=== PATIENT | female | born 1975 | race Caucasian/White ===

== ENCOUNTER 2017-03-23 20:06 | Emergency (ER) | payer BC, OTHER ==
[2017-03-23 20:10] VITALS: TEMP 98.1
--- NOTE | 2017-03-23 20:37 | EDPHY ---
H & P Stated Complaint: abd pain, saw MD Carson butler ruputured ovarian cyst Time Seen by Provider: 03/23/17 20:36 HPI/ROS: HPI: This is a 41-year-old female who presents with Chief Complaint: abd pain, saw MD Carson butler ruputured ovarian cyst Location: Right lower quadrant Quality: Pain Duration: 0200 this morning Signs and Symptoms: no fever, + nausea, no vomiting, no hematemesis, no blood in stool, no abdominal bloating, no diarrhea, no back pain, no urinary symptoms , no hematuria, no indigestion, no chest pain, no shortness of breath Timing: Sudden Severity: Moderate Context: Patient reports that around 2:00 a.m. she was woken up out of her sleep by right lower quadrant sharp moderate, nonradiating pain that is just kind of there all day accompanied by nausea. Patient reports that she has a history ovarian cysts in her primary is concerned that it ruptured. Last menstrual period was approximately 1-2 weeks ago. Denies any dyspareunia/ vaginal bleeding/vaginal discharge. No prior abdominal surgeries or history of kidney stones. Her appetite was decreased today but drinking fluids without difficulty. Denies any fever/nausea/vomiting/diarrhea. She had a bowel movement yesterday without difficulty. Modifying Factors: Called her PCP and advised her to go to the ER Comment: ROS: see HPI Constitutional: No fever, no chills, no weight loss Eyes: No blurred vision Respiratory: No shortness of breath, no cough Cardiovascular: No chest pain, no palpitations Gastrointestinal: No nausea, no vomiting, no diarrhea, no hematemesis, no blood in stool Genitourinary: No dysuria, no blood in urine Extremities: No myalgias, no edema Neurologic: No weakness, no numbness Skin: No rashes, no petechiae Hematologic: No bruising, no bleeding MEDICAL/SURGICAL/SOCIAL HISTORY: Medical history: Ovarian cyst PSHx: sinus surgery, jaw surgery Social history: CONSTITUTIONAL: Pleasant adult white female, nontoxic in appearance, awake and alert, no obvious distress HEENT: Atraumatic and normocephalic, PERRL, EOMI. Tympanic membranes clear. Oropharynx clear, no exudate and moist pink mucosa. Airway patent. No lymphadenopathy. No meningismus. Cardiovascular: Normal S1/S2, regular rate, regular rhythm, without murmur rub or gallop. PULMONARY/CHEST: Symmetrical and nontender. Clear to auscultation bilaterally. Good air movement. No accessory muscle usage. ABDOMEN: Soft, nondistended, suprapubic and right lower quadrant tenderness, no right lower quadrant pain when palpating left lower quadrant, negative psoas sign, negative obturator sign, negative Rovsing sign, no rebound, no guarding, no peritoneal signs, no masses or organomegaly. No CVAT. Bowel sounds heard x4 quadrants. EXTREMITIES: 2/2 pulses, strength 5/5, no deformities, no clubbing, no cyanosis or edema. NEUROLOGICAL: no focal neuro deficits. GCS 15. SKIN: Warm and dry, no erythema. no rash. Good capillary refill. Source: Patient, Family () Exam Limitations: No limitations - Personal History LMP (Females 10-55): 15-21 Days Ago Current Tetanus/Diphtheria Vaccine: Unsure - Medical/Surgical History Hx Asthma: No Hx Chronic Respiratory Disease: No Hx Diabetes: No Hx Cardiac Disease: No Hx Renal Disease: No Hx Cirrhosis: No Hx Alcoholism: No Hx HIV/AIDS: No Hx Splenectomy or Spleen Trauma: No Other PMH: PMHx: denies. PSHx: sinus surgery, jaw surgery - Social History Smoking Status: Never smoked Constitutional: Initial Vital Signs Temperature (C) 36.7 C 03/23/17 20:08 Heart Rate 63 03/23/17 20:08 Respiratory Rate 14 03/23/17 20:08 Blood Pressure 126/71 H 03/23/17 20:08 O2 Sat (%) 98 03/23/17 20:08 O2 Delivery Mode Room Air Allergies/Adverse Reactions: iodine Allergy (Verified 04/25/16 04:52) Sulfa (Sulfonamide Antibiotics) Allergy (Verified 04/25/16 04:52) Home Medications: Medication Instructions Recorded Cefuroxime Axetil [Ceftin (*)] 250 mg PO BID #13 tab 03/23/17 Naproxen Sodium [Naproxen Sodium 500 mg PO DAILY PRN #12 tablet.sa 03/23/17 ER] Promethazine HCl [Phenergan 12.5mg 12.5 mg PO Q6 PRN #12 tablet 03/23/17 tab] Medical Decision Making - Diagnostics Imaging Results: Imaging Impressions Pelvic/Renal Ultrasound 03/23/17 20:40 Impression: 1. Complex cystic solid mass in the right adnexa, similar though slightly enlarged since previous exam in 2011. Similarity to prior exam and the presence of some arterial and venous flow within this structure arteries against torsion. Recommend MRI with and without contrast of the pelvis to further evaluate. 2. Solid-appearing vascular structure appears new but may represent hemorrhage within a corpus luteum cyst. This can be further evaluated on the MRI recommended above. Dr. Briceno discussed these findings by telephone with Traci Olivas on 2016 at 22:23. Abdomen Ultrasound 03/23/17 20:45 Impression: 1. Complex cystic solid mass in the right adnexa, similar though slightly enlarged since previous exam in 2011. Similarity to prior exam and the presence of some arterial and venous flow within this structure arteries against torsion. Recommend MRI with and without contrast of the pelvis to further evaluate. 2. Solid-appearing vascular structure appears new but may represent hemorrhage within a corpus luteum cyst. This can be further evaluated on the MRI recommended above. Dr. Briceno discussed these findings by telephone with Traci Olivas on 2016 at 22:23. ED Course/Re-evaluation: Labs, urinalysis, pelvic ultrasound ordered Labs reviewed and grossly unremarkable. Urinalysis shows infection sent for urine culture Keflex given; sulfa allergy Called by radiologist who advised that right cystic mass is slightly larger than the last ultrasound but does have flew venous and arterial. There is a left hemorrhagic cyst. Appendix not able to be visualized. MRI for further evaluation recommended outpatient Patient has an iodine allergy. Discussed nonvisualization of the appendix obtaining CT scan. Patient is very reluctant as believes this is all related to her ovaries. She follows with Dr. Mcbride a [facility] in wishes to follow up with her OBGYN in the next 1-2 days. She politely declines any opiate medications and requested prescription for naproxen and promethazine. Repeat abdominal exam is soft with only mild tenderness right lower quadrant. Patient passed p.o. trial. No signs of pyelonephritis/sepsis/acute kidney injury/acute abdomen. Differential Diagnosis: Abdominal pain in a female including but not limited to ovarian cyst, pelvic inflammatory disease, ovarian torsion, urinary tract infection, and appendicitis. - Data Points Laboratory Results: Laboratory Results 03/23/17 21:05 03/23/17 21:05 03/23/17 03/23/17 03/23/17 21:05 21:05 21:05 WBC RBC Hgb Hct MCV MCH MCHC RDW Plt Count MPV Neut % (Auto) Lymph % (Auto) [place] % (Auto) Eos % (Auto) Baso % (Auto) Nucleat RBC Rel Count Absolute Neuts (auto) Absolute Lymphs (auto) Absolute Monos (auto) Absolute Eos (auto) Absolute Basos (auto) Absolute Nucleated RBC Immature Gran % Immature Gran # PT 14.1 SEC SEC (12.0-15.0) INR 1.10 (0.83-1.16) APTT 26.1 SEC SEC (23.0-38.0) Sodium 134 mEq/L mEq/L (134-144) Potassium 3.8 mEq/L mEq/L (3.5-5.2) Chloride 101 mEq/L mEq/L (97-110) Carbon Dioxide 25 mEq/l mEq/l (22-31) Anion Gap 8 mEq/L mEq/L (8-16) BUN 12 mg/dL mg/dL (7-23) Creatinine 0.9 mg/dL mg/dL (0.6-1.0) Estimated GFR > 60 Glucose 109 mg/dL H mg/dL (70-100) Calcium 8.9 mg/dL mg/dL (8.5-10.4) Total Bilirubin 0.7 mg/dL mg/dL (0.1-1.4) Conjugated Bilirubin 0.0 mg/dL mg/dL (0.0-0.5) Unconjugated Bilirubin 0.7 mg/dL mg/dL (0.0-1.1) AST 17 IU/L IU/L (14-46) ALT 27 IU/L IU/L (9-52) Alkaline Phosphatase 57 IU/L IU/L (38-126) Total Protein 6.0 g/dL L g/dL (6.3-8.2) Albumin 3.9 g/dL g/dL (3.5-5.0) Urine Color YELLOW Urine Appearance HAZY Urine pH 5.0 (5.0-7.5) Ur Specific [place] 1.014 (1.002-1.030) Urine Protein NEGATIVE (NEGATIVE) Urine Ketones 1+ H (NEGATIVE) Urine Blood NEGATIVE (NEGATIVE) Urine Nitrate NEGATIVE (NEGATIVE) Urine Bilirubin NEGATIVE (NEGATIVE) Urine Urobilinogen NEGATIVE EU EU (0.2-1.0) Ur Leukocyte Esterase 2+ H (NEGATIVE) Urine RBC 5-10 /hpf H /hpf (0-3) Urine WBC 5-10 /hpf H /hpf (0-3) Ur Epithelial Cells TRACE /lpf /lpf (NONE-1+) Urine Bacteria 3+ /hpf H /hpf (NONE SEEN) Urine Mucus TRACE /lpf /lpf (NONE-1+) Urine Glucose NEGATIVE (NEGATIVE) 03/23/17 21:05 WBC 11.56 10^3/uL H 10^3/uL (3.80-9.50) RBC 4.42 10^6/uL 10^6/uL (4.18-5.33) Hgb 14.0 g/dL g/dL (12.6-16.3) Hct 39.9 % % (38.0-47.0) MCV 90.3 fL fL (81.5-99.8) MCH 31.7 pg pg (27.9-34.1) MCHC 35.1 g/dL g/dL (32.4-36.7) RDW 12.9 % % (11.5-15.2) Plt Count 226 10^3/uL 10^3/uL (150-400) MPV 9.5 fL fL (8.7-11.7) Neut % (Auto) 77.5 % H % (39.3-74.2) Lymph % (Auto) 14.6 % L % (15.0-45.0) [place] % (Auto) 6.6 % % (4.5-13.0) Eos % (Auto) 0.7 % % (0.6-7.6) Baso % (Auto) 0.3 % % (0.3-1.7) Nucleat RBC Rel Count 0.0 % % (0.0-0.2) Absolute Neuts (auto) 8.95 10^3/uL H 10^3/uL (1.70-6.50) Absolute Lymphs (auto) 1.69 10^3/uL 10^3/uL (1.00-3.00) Absolute Monos (auto) 0.76 10^3/uL 10^3/uL (0.30-0.80) Absolute Eos (auto) 0.08 10^3/uL 10^3/uL (0.03-0.40) Absolute Basos (auto) 0.04 10^3/uL 10^3/uL (0.02-0.10) Absolute Nucleated RBC 0.00 10^3/uL 10^3/uL (0-0.01) Immature Gran % 0.3 % % (0.0-1.1) Immature Gran # 0.04 10^3/uL 10^3/uL (0.00-0.10) PT INR APTT Sodium Potassium Chloride Carbon Dioxide Anion Gap BUN Creatinine Estimated GFR Glucose Calcium Total Bilirubin Conjugated Bilirubin Unconjugated Bilirubin AST ALT Alkaline Phosphatase Total Protein Albumin Urine Color Urine Appearance Urine pH Ur Specific [place] Urine Protein Urine Ketones Urine Blood Urine Nitrate Urine Bilirubin Urine Urobilinogen Ur Leukocyte Esterase Urine RBC Urine WBC Ur Epithelial Cells Urine Bacteria Urine Mucus Urine Glucose Departure - Departure Disposition: Home, Routine, Self-Care Clinical Impression: Hemorrhagic cyst of left ovary Ovarian cystic mass Qualifiers: Laterality: right Qualified Code(s): N83.201 - Unspecified ovarian cyst, right side Condition: Good Instructions: Ovarian Cyst (ED), Ruptured Ovarian Cyst (ED) Additional Instructions: Please follow up with OBGYN in the next 1-2 days. It is recommended the to obtain a repeat ultrasound and/or MRI pelvis to further evaluate from malignancy. Please take all antibiotics as directed until complete. Drink plenty of fluids. If at any time you developed severe constant pain; fever; vomiting, please return to the emergency room immediately. Referrals: Erna Mcbride MD [Medical Doctor] - As per Instructions Prescriptions: Cefuroxime Axetil [Ceftin (*)] 250 mg PO BID #13 tab Naproxen Sodium [Naproxen Sodium ER] 500 mg PO DAILY PRN #12 tablet.sa PRN Reason: Pain, Moderate Promethazine HCl [Phenergan 12.5mg tab] 12.5 mg PO Q6 PRN #12 tablet PRN Reason: Nausea/Vomiting, Use 1st
[2017-03-23 21:13] LABS: PLATELET COUNT 226 10^3/uL (150-400)
[2017-03-23 21:26] LABS: INR 1.1 (0.83-1.16); PROTIME(PATIENT) 14.1 SEC (12.0-15.0)
[2017-03-23] MEDS ORDERED: PROMETHAZINE HCL 25 MG TAB PO ONE (22:37)
[2017-03-23] MEDS ORDERED: CEPHALEXIN 500 MG CAP PO ONE (22:37)
[2017-03-23] MEDS ORDERED: NAPROXEN SODIUM 220 MG TAB PO ONE (22:38)
[2017-03-23] MEDS ORDERED: IBUPROFEN 600 MG TAB PO ONE ×2 (22:42→22:43)
[2017-03-23 22:50] VITALS: BP 116/77; PULSE 59; RESP 16; O2SAT 96
== END 2017-03-23 22:58 | disposition home or self-care (01) ==
DX: N83.201 Unspecified ovarian cyst, right side (principal); N83.8 Other noninflammatory disorders of ovary, fallopian tube and broad ligament

== ENCOUNTER → 2017-05-19 | Outpatient (CLI) | payer OTHER | LOC: FIMAGING 13:06 | PROVIDERS: ATTEND Obstetrics & Gynecology | DX: N83.201 Unspecified ovarian cyst, right side (principal) ==

== ENCOUNTER → 2018-07-26 | Outpatient (CLI) | payer BC ==
[~2018-07-26] MED LIST: LIDOCAINE 2% 2 ML INJ ONE; PROPOFOL/EMULSION 500 MG/50 ML BOTTLE IV ONE
== END ==
LOC: FIMAGING 15:03
PROVIDERS: ATTEND Family Medicine
DX: Z12.31 Encounter for screening mammogram for malignant neoplasm of breast (principal)
CPT/HCPCS: J2704